=== PATIENT | female | born 1975 | race Caucasian/White ===

== ENCOUNTER 2019-07-06 14:01 | Emergency (ER) | payer OTHER | END 2019-07-06 15:00 | disposition home or self-care (01) | LOC: ERS 14:01 | DX: N61.0 Mastitis without abscess (principal); F31.9 Bipolar disorder, unspecified; F43.10 Post-traumatic stress disorder, unspecified; G40.909 Epilepsy, unspecified, not intractable, without status epilepticus; Z79.899 Other long term (current) drug therapy | CPT/HCPCS: 99283 ==

== ENCOUNTER 2019-08-21 14:59 | Emergency (ER) | payer OTHER ==
--- NOTE | 2019-08-21 15:46 | RAD ---
EXAM: 3 views of the right thumb DATE: 08/21/2019 3:21 PM INDICATION: Right thumb pain for 2 weeks COMPARISON: None. 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 No acute fracture is rbyan dent. No radiopaque foreign body is demonstrated. IMPRESSION:No acute fracture or subluxation demonstrated.
== END 2019-08-21 16:27 | disposition home or self-care (01) ==
LOC: ERS 14:59
DX: M79.644 Pain in right finger(s) (principal); F31.9 Bipolar disorder, unspecified; F43.10 Post-traumatic stress disorder, unspecified; F17.210 Nicotine dependence, cigarettes, uncomplicated; Z79.899 Other long term (current) drug therapy

== ENCOUNTER 2021-09-14 23:35 | Emergency (ER) | payer SELFPAY ==
[2021-09-15 00:41] LABS: #Basophils 0.1 thou/uL (0.0-0.2); #Eosinphils 0.1 thou/uL (0.0-0.7); #Lymphocytes 3.8 thou/uL (1.20-3.40); #Monocytes 0.8 thou/uL (0.11-0.59); #Neutrophils 2.9 thou/uL (1.40-6.50); %Basophils 1.2 % (0.0-1.0); %Eosinophils 1.6 % (0.0-10.0); %Lymphocytes 49.7 % (21.0-51.0); %Monocytes 10.2 % (0.0-10.0); %Neutrophils 37.2 % (42.0-75.0); Hemoglobin 12.3 g/dL (12.0-16.0); Mean Corpuscular HGB CONC 32.5 g/dL (32.0-36.0); Mean Corpuscular Hemoglobin 33.1 pg (27.0-31.0); Mean Platelet Volume 6.4 fL (7.4-10.4); Platelet Count 251 thou/uL (130-400); RBC Distribution Width 11.8 % (11.5-14.5); Red Blood Cell (RBC) Count 3.73 mill/uL (4.20-5.40); White Blood Cell (WBC) Count 7.7 thou/uL (4.8-10.8)
[2021-09-15 01:04] LABS: ALT (SGPT) 54 U/L (8-55); AST (SGOT) 42 U/L (5-34); Alkaline Phosphatase 125 U/L (40-110); Anion Gap 16 mmol/L (10-20); BUN (Urea Nitrogen) 19 mg/dL (7.0-18.7); Bilirubin, Total 0.2 mg/dL (0.2-1.2); Calc. Creatinine Clearance 0 mL/min (70-130); Calcium 8.9 mg/dL (7.8-10.44); Carbon Dioxide 21 mmol/L (22-29); Chloride 103 mmol/L (98-107); Estimated GFR 104; Globulin 3.4 g/dL (2.4-3.5); Glucose 89 mg/dL (70-105); Potassium 4.2 mmol/L (3.5-5.1); Protein, Total 7.4 g/dL (6.0-8.3); Sodium 136 mmol/L (136-145)
== END 2021-09-15 01:31 | disposition left against medical advice (07) ==
LOC: ERS 23:35
DX: Z53.21 Procedure and treatment not carried out due to patient leaving prior to being seen by health care provider (principal)
CPT/HCPCS: 36415; 80053; 84484; 85025; 93005

== ENCOUNTER 2022-01-02 19:57 | Emergency (ER) | payer SELFPAY ==
[2022-01-02] MEDS ORDERED: Lidocaine 1% PF 5 ML VIAL ONE (21:52)
[2022-01-02] MEDS ORDERED: Bacitracin 1 PK ONE (22:12)
== END 2022-01-02 22:16 | disposition home or self-care (01) ==
LOC: ERS 19:57
DX: S61.211A Laceration without foreign body of left index finger without damage to nail, initial encounter (principal); F17.210 Nicotine dependence, cigarettes, uncomplicated; W26.0XXA Contact with knife, initial encounter
CPT/HCPCS: 12001

== ENCOUNTER 2024-01-31 11:37 | Emergency (ER) | payer SELFPAY ==
[2024-01-31] MEDS ORDERED: Ketorolac Tromethamine 30 MG (1 mL) VIAL ONE (13:42)
== END 2024-01-31 14:05 | disposition home or self-care (01) ==
LOC: ERS 11:37
DX: S93.492A Sprain of other ligament of left ankle, initial encounter (principal); F17.210 Nicotine dependence, cigarettes, uncomplicated; W10.9XXA Fall (on) (from) unspecified stairs and steps, initial encounter; Y93.89 Activity, other specified
CPT/HCPCS: 96372; 99283; J1885